=== PATIENT | female | born 1940 | race Caucasian/White ===

== ENCOUNTER 2019-03-05 10:15 | Inpatient (IN) ==
--- NOTE | 2019-02-26 14:49 | EKG Report ---
Test Performed on : 02/26/2019 2:44:26 PM Test Reason : PAT Blood Pressure : / mmHG Vent. Rate : 079 BPM Atrial Rate : 079 BPM P-R Int : 174 ms QRS Dur : 080 ms QT Int : 374 ms P-R-T Axes : 039 064 025 degrees QTc Int : 428 ms Normal sinus rhythm. Normal ECG When compared with ECG of 08-NOV-2018 21:41, Sinus rhythm. has replaced Junctional rhythm. Vent. rate has decreased BY [address] no longer depressed in Anterior leads Nonspecific T wave abnormality now evident in Inferior leads Nonspecific T wave abnormality no longer evident in Lateral leads Confirmed by Nola MCDONNELL, Cliff Ledesma ([id number]) on 02/28/2019 7:59:20 PM
[2019-02-26 15:41] LABS: BASO# 0.03 X1000 (0.0-0.2); BASO% 0.3 % (0.0-0.8); EOS% 1.1 % (0.0-10.0); HEMATOCRIT 48.9 % (37.0-47.0); HEMOGLOBIN 16.5 g/dL (12.0-16.0); IMM GRAN# 0.03 X1000 (0.0-0.04); IMM GRAN% 0.3 % (0.0-0.5); LYMPH# 1.09 X1000 (1.2-3.4); LYMPH% 12.2 % (20.5-51.1); MCH 31.7 PG (27-31); MCHC 33.7 g/dL (33-37); MCV 93.9 FL (81-99); NEUT# 6.85 X1000 (1.4-6.5); NEUT% 77.1 % (42.2-75.2); PLT 248 X1000 (130-400); RBC 5.21 XMIL (4.2-5.4); RDW 13.3 % (11.5-14.5)
[2019-02-26 15:47] LABS: URINE SOURCE CLEAN CATCH
[2019-02-26 15:49] LABS: INR 0.93; PROTIME 12.5 Seconds (11.0-16.0)
[2019-02-26 15:50] LABS: PTT 32.3 Seconds (22.3-41.8)
[2019-02-26 15:55] LABS: HEMOGLOBIN A1C 5.9 % (4.8-6.0)
[2019-02-26 16:00] LABS: AGAP 14; BUN 18 mg/dL (8-22); CALCIUM 9.9 mg/dL (8.8-10.2); CHLORIDE 98 mmol/L (98-107); COSMO 277; CREATININE 0.7 mg/dL (0.5-0.9); ESTIMATED GFR > 60; GLUCOSE 97 mg/dL (70-104); POTASSIUM 3.8 mmol/L (3.5-5.1); SODIUM 138 mmol/L (136-145); TCO2 26 mmol/L (25-35)
[2019-02-26 16:01] LABS: BILIRUBIN URINE NEGATIVE (NEGATIVE); BLOOD URINE TRACE (NEGATIVE); COLOR YELLOW; GLUCOSE URINE NEGATIVE (NEGATIVE); KETONE URINE NEGATIVE (NEGATIVE); LEUKOCYTES URINE LARGE (NEGATIVE); NITRITE URINE NEGATIVE (NEGATIVE); PROTEIN URINE NEGATIVE (NEGATIVE); TURBIDITY URINE HAZY (CLEAR); UROBILINOGEN URINE NORMAL (NORMAL)
[2019-02-26 16:03] LABS: UR EPITHELIAL CELLS <10 /HPF (<10); URINE BACTERIA NEGATIVE /HPF; URINE RBC <10 /HPF (<10); URINE WBC TNTC /HPF (<10)
[2019-03-19] MEDS ORDERED: REGLAN ONE (10:28)
[2019-03-19] MEDS ORDERED: LYRICA ONE (10:28)
[2019-03-19] MEDS ORDERED: PEPCID ONE (10:28)
[2019-03-19] MEDS ORDERED: COLACE ONE (10:28)
[2019-03-19] MEDS ORDERED: KEFZOL 1 GM/D5W 2 GM/100 ML IVPB ONE (10:29)
[2019-03-19] MEDS ORDERED: CELEBREX ONE (10:29)
[2019-03-19] MEDS ORDERED: LR 1,000 ML ONE (10:29)
[2019-03-19] MEDS ORDERED: VALIUM ONE (10:41)
[2019-03-19] MEDS ORDERED: TORADOL ONE (11:14)
[2019-03-19] MEDS ORDERED: SODIUM CHLORIDE 0.9% ONE (11:14)
[2019-03-19] MEDS ORDERED: VANCOMYCIN ONE (11:14)
[2019-03-19] MEDS ORDERED: MARCAINE 0.25% PF ONE (11:14)
[2019-03-19] MEDS ORDERED: DURAMORPH ONE (11:14)
[2019-03-19] MEDS ORDERED: EXPAREL 1.3% ONE (11:16)
[2019-03-19] MEDS ORDERED: DIPRIVAN 1% 500 MG/50 ML BOTTLE ONE (11:23)
[2019-03-19] MEDS ORDERED: FENTANYL ONE (11:30)
[2019-03-19] MEDS ORDERED: VERSED ONE ×3 (11:30→12:58)
[2019-03-19] MEDS: CYKLOKAPRON 1,000 MG/NS 2,000 MG/200 ML IVPB ONE ×2 (11:55→13:00)
[2019-03-19] MEDS ORDERED: ZOFRAN ONE (11:59)
[2019-03-19] MEDS ORDERED: OFIRMEV 1000 MG/ISOTONIC SOLN 1,000 MG/100 ML BOTTLE ONE (11:59)
[2019-03-19] MEDS ORDERED: XYLOCAINE-MPF 2% ONE (11:59)
[2019-03-19] MEDS ORDERED: DECADRON ONE (11:59)
[2019-03-19 12:47] LABS: URINE SOURCE CATH
[2019-03-19 12:53] LABS: BILIRUBIN URINE NEGATIVE (NEGATIVE); BLOOD URINE TRACE (NEGATIVE); COLOR YELLOW; GLUCOSE URINE NEGATIVE (NEGATIVE); KETONE URINE NEGATIVE (NEGATIVE); LEUKOCYTES URINE NEGATIVE (NEGATIVE); NITRITE URINE NEGATIVE (NEGATIVE); PROTEIN URINE TRACE mg/dL (NEGATIVE); SP GRAVITY URINE 1.031; TURBIDITY URINE CLEAR (CLEAR); UR EPITHELIAL CELLS <10 /HPF (<10); URINE BACTERIA NEGATIVE /HPF; URINE RBC <10 /HPF (<10); URINE WBC <10 /HPF (<10); UROBILINOGEN URINE 2 mg/dL (NORMAL)
--- NOTE | 2019-03-19 13:37 | OPERATIVE NOTE ---
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 PROCEDURE PERFORMED: Left total knee replacement. SURGEON: Arben Centeno MD. CLINICAL LABORATORY SERVICE TEACHER: RAÚL Lindsay. Mr. Ordoñez was necessary for proper retraction and manipulation of the case. ANESTHESIA: Spinal. COMPLICATION: None. PROCEDURE IN DETAIL: A 78-year-old female presents for a left total knee replacement. Risks, benefits, and no guarantees were discussed and she is willing to proceed. She was taken to the operating room and satisfactory anesthesia obtained. The left knee was prepped and draped in usual sterile fashion. A time-out was taken to confirm operative site, procedure, and patient. The leg was wrapped with an Esmarch and tourniquet inflated to 300 mmHg. A midline incision was made over the front of the knee followed by quad tendon sparing arthrotomy. The patella was everted with freehand technique and resurfaced. With the patella subluxed laterally, the knee was flexed, an intramedullary hole made in the distal femur and the distal femoral cutting block secured in 5 degrees of valgus. Distal femoral resection was made and the femur sized to a DePuy size 4 femoral implant. The 4 in 1 block was secured and the anterior, posterior, and chamfer cuts sequentially made. The notch was created for posterior stabilized design using the provided notch guide and any remaining osteophytes debrided off the femur. A PCL retractor was placed behind the tibia with the knee flexed to protect the neurovascular bundle and the tibial cutting block secured using extramedullary alignment. Tibial resection made and flexion-extension gaps equal with a 6 mm spacer. Tibia was sized to a size 5 tibial tray. A trial reduction was performed with a size 5 trial tibial tray, a 4 standard width posterior stabilized femoral component and a 6 mm spacer block. Good range of motion and stability was noted. The patella was sized to a 35 medialized dome patella with midline tracking. The trial components were removed and the bony surfaces thoroughly irrigated with pulsatile lavage. Cement with a gram of vancomycin was then utilized to cement a DePuy size 5 rotating platform tibial base plate, a size 4 left posterior stabilized standard width femoral component and a 35 medialized dome patella. Excess cement was removed with a [place] elevator as necessary. While the cement cured, the joint capsule was injected with Exparel for pain management and a Hemovac drain placed. After curing the cement, a size 4, 6 mm posterior stabilized polyethylene bearing was secured into the tibial tray and the knee reduced. Final range of motion was 0 to 120 degrees with midline patellar tracking and excellent soft tissue balance. The arthrotomy was copiously irrigated with irrigant. It was closed over the drain with #1 Vicryl in the arthrotomy, 2-0 Vicryl in the subcutaneous and skin emi on the skin edges. Sterile dressings completed the closure and the patient was recovered from anesthesia and transferred to the recovery room in stable condition. No intraoperative complications were noted. Instrument count and sponge count was correct at the time of closure. cc: William Centeno MD
[2019-03-19] MEDS ORDERED: OXY IR PO PRN ×2 (14:15)
[2019-03-19] MEDS ORDERED: ZOFRAN ODT PO PRN (14:15)
[2019-03-19] MEDS ORDERED: MORPHINE IV PRN ×3 (14:15)
[2019-03-19] MEDS ORDERED: ZOFRAN IV PRN (14:15)
[2019-03-19] MEDS ORDERED: NS 1,000 ML IV SCH (14:15)
[2019-03-19] MEDS ORDERED: OXY IR ONE (14:20)
[2019-03-19] MEDS ORDERED: NS 1,000 ML ONE (14:20)
--- NOTE | 2019-03-19 14:55 | Diag Imaging Result Doc PS360 ---
KNEE 1-2 VIEWS-LEFT - 03/19/2019 INDICATION: post op total knee TECHNIQUE: Two views COMPARISON: None FINDINGS: There has been left total knee arthroplasty. Alignment is anatomic. No hardware fracture or loosening. IMPRESSION: No complication. Electronically signed by Darrion Shields 03/19/2019 2:53 PM
[2019-03-19] MEDS ORDERED: VENTOLIN HFA INH PRN (15:23)
[2019-03-19] MEDS ORDERED: ATIVAN PO PRN (15:23)
[2019-03-19] MEDS ORDERED: ALBUTEROL NEB INH PRN (15:23)
[2019-03-19] MEDS ORDERED: TRIAMCINOLONE ACETONIDE INH SCH (15:30)
--- NOTE | 2019-03-19 16:45 | ORTHOPAEDICS PROGRESS NOTE ---
DATE: 03/19/2019 SUBJECTIVE: Ms. Burger is seen status post total knee replacement. OBJECTIVE: At the present time, she is afebrile with stable vital signs. Her bandage is clean and dry. She is motor and sensory intact. IMAGING STUDIES: Postoperative x-ray showed good alignment of the knee. ASSESSMENT AND PLAN: She is nontender currently. We will plan on keeping her inpatient and mobilizing her. She can be transferred to rehab or home when mobilizing well. cc: MD Medhat Abebe MD
[2019-03-19] MEDS: ULTRAM PO SCH (17:00)
--- NOTE | 2019-03-19 17:32 | CONSULTATION ---
DATE OF CONSULTATION: 03/19/2019 REASON FOR CONSULT: Hypertension management. HISTORY OF PRESENT ILLNESS: Briefly, this is a 78-year-old female with a history of severe DJD, who is here for an elective left total knee replacement per Dr. Centeno. She is 78. She has a history of asthma and hypertension and hypothyroidism. There is no clear documentation of atrial flutter. That has been reported but not confirmed. She was admitted for treatment of her status post left total knee replacement, TKR, and we are evaluating to manage her blood pressure, asthma, potentially. PAST MEDICAL HISTORY: 1. Asthma. 2. Delineated pulmonary fibrosis but this has not been verified 3. Atrial flutter, this has not been verified. 4. Hypertension. 5. Hyperlipidemia. 6. Carotid artery disease. 7. Chronic venous insufficiency status blows ablation. 8. GERD. 9. Hypothyroidism. 10. Hypogammaglobulinemia for which she has gotten previous infusions. Dr. Minaya manages her hyperglobulinemia. PAST SURGICAL HISTORY: I think she has had a left TKA. She has had a greater saphenous vein ablation. FAMILY HISTORY: CHF in her mother. Dementia in her father. She had a brother with leukemia who as a child. SOCIAL HISTORY: No tobacco. Occasional ethanol but no daily use. ALLERGIES: Cipro, lanolin, and beta blockers, which exacerbate her breathing. MEDICATIONS: She takes Accolate 20 twice a day, albuterol as needed, Asmanex, Ambien as needed, Calcitrate, Crestor 5 daily, Dexilant 30 daily, gabapentin 600 t.i.d. but she takes it b.i.d., hydrochlorothiazide 25 b.i.d., Linzess 290, lorazepam 1 b.i.d., MagOx 400, Nasacort, Phospha, QVAR daily, Requip 2 at bedtime, Synthroid 125 daily, Tylenol, [place], Zoloft 150 daily, Xopenex. REVIEW OF SYSTEMS: Otherwise negative times a 10 point review of systems. PHYSICAL EXAMINATION: Vital signs: Blood pressure is 130/66, heart rate 74, respiratory rate 16, temperature 97.8 degrees, 94% on 2 L. General: A well-developed female, in no acute distress. Head: Normocephalic, atraumatic. Eyes: Pupils equal, round, reactive to light. Extraocular movements were intact. Ear, nose, and throat: She had moist mucous membranes. Neck: Supple. Cardiovascular: Regular rate and rhythm. No murmurs, gallops, or rubs. Pulmonary: Bilateral breath sounds. Clear to auscultation. GI: Soft, nontender, nondistended. Bowel sounds are positive. LABORATORY STUDIES: No new data today. Preop she was not anemic. If anything, she had erythrocytosis. PROBLEM LIST: 1. Right total knee replacement. Dr. Centeno is following. We will continue to manage. Avoid beta blockers because of her asthma. 2. Asthma, well controlled. She will be on p.r.n. breathing treatments. 3. Gastroesophageal reflux disease. We will continue her Dexilant and follow. 4. Hypertension. We will continue to monitor closely. Continue regular medications. 5. Hypothyroidism. We will analyze her TSH level and follow. We will follow closely along with you. If stable, then anticipate discharge per Orthopedic recommendations. cc: MD Stevenson Doherty MD
[2019-03-19] MEDS: TYLENOL PO SCH (18:35)
[2019-03-19] MEDS: CELEBREX PO SCH (19:43)
[2019-03-19] MEDS: CRESTOR PO SCH (19:43)
[2019-03-19] MEDS: KEFZOL 2 GM/D5W 2 GM/50 ML IVPB IV SCH (19:43)
[2019-03-19] MEDS: COLACE PO SCH (19:44)
[2019-03-19] MEDS: NEURONTIN PO SCH (19:44)
[2019-03-19] MEDS: HYDROCHLOROTHIAZIDE PO SCH (19:44)
[2019-03-19] MEDS: REQUIP PO SCH (19:45)
[2019-03-19] MEDS: PERIDEX MT SCH (19:45)
[2019-03-20] MEDS: PERIDEX MT SCH ×3 (00:37→20:13)
[2019-03-20] MEDS: HYDROCHLOROTHIAZIDE PO SCH ×3 (00:37→20:14)
[2019-03-20] MEDS: CRESTOR PO SCH ×2 (00:38→20:15)
[2019-03-20] MEDS: CELEBREX PO SCH ×3 (00:38→20:14)
[2019-03-20] MEDS: REQUIP PO SCH ×2 (00:39→20:16)
[2019-03-20] MEDS: COLACE PO SCH ×3 (00:39→20:16)
[2019-03-20] MEDS: NEURONTIN PO SCH ×3 (00:39→20:16)
[2019-03-20] MEDS: ULTRAM PO SCH ×4 (00:44→18:08)
[2019-03-20] MEDS: TYLENOL PO SCH ×2 (00:44→07:02)
[2019-03-20] MEDS: KEFZOL 2 GM/D5W 2 GM/50 ML IVPB IV SCH (04:29)
[2019-03-20 06:26] LABS: BASO# 0.01 X1000 (0.0-0.2); BASO% 0.1 % (0.0-0.8); EOS# 0.02 X1000 (0.0-0.7); EOS% 0.2 % (0.0-10.0); HEMOGLOBIN 13.4 g/dL (12.0-16.0); IMM GRAN# 0.04 X1000 (0.0-0.04); IMM GRAN% 0.3 % (0.0-0.5); LYMPH# 0.84 X1000 (1.2-3.4); LYMPH% 7.2 % (20.5-51.1); MCH 31.1 PG (27-31); MCHC 32.7 g/dL (33-37); MCV 95.1 FL (81-99); MONO# 1.02 X1000 (0.11-0.59); MONO% 8.8 % (1.7-9.3); MPV 10.1 FL (7.4-10.4); NEUT# 9.66 X1000 (1.4-6.5); NEUT% 83.4 % (42.2-75.2); PLT 207 X1000 (130-400); RBC 4.31 XMIL (4.2-5.4); RDW 12.7 % (11.5-14.5); WBC 11.59 X1000 (4.8-10.8)
[2019-03-20 07:00] LABS: AGAP 10; BUN 18 mg/dL (8-22); CALCIUM 8.3 mg/dL (8.8-10.2); CHLORIDE 105 mmol/L (98-107); COSMO 279; CREATININE 0.9 mg/dL (0.5-0.9); ESTIMATED GFR > 60; GLUCOSE 116 mg/dL (70-104); POTASSIUM 3.7 mmol/L (3.5-5.1); SODIUM 138 mmol/L (136-145); TCO2 23 mmol/L (25-35)
[2019-03-20 07:01] LABS: ALB/GLOB RATIO 1.3; ALBUMIN 3.6 g/dL (3.5-5.0); DIRECT BILIRUBIN 0.1 mg/dL (0.00-0.20); TOTAL BILIRUBIN 0.31 mg/dL (0.20-1.00); TOTAL PROTEIN 6.3 g/dL (6.3-8.3)
[2019-03-20] MEDS: LINZESS PO SCH (07:01)
[2019-03-20] MEDS: SYNTHROID PO SCH (07:02)
[2019-03-20] MEDS: BREO ELLIPTA 200/25 MCG INH INH SCH (07:36)
[2019-03-20] MEDS: ZOLOFT PO SCH (08:47)
[2019-03-20] MEDS: ASPIRIN PO SCH (08:48)
[2019-03-20] MEDS: MIRALAX PO SCH (08:48)
[2019-03-20] MEDS: ACCOLATE PO SCH ×2 (08:48→20:17)
[2019-03-20] MEDS: PEPCID PO SCH (08:48)
[2019-03-20] MEDS ORDERED: NON-FORMULARY MED PO SCH (09:00)
--- NOTE | 2019-03-20 14:26 | ORTHOPAEDICS PROGRESS NOTE ---
DATE: 03/20/2019 SUBJECTIVE DATA: Ms. Burger is sitting up in her chair. She is overall doing well. She states her pain is fairly well controlled, but she has had difficulty mobilizing and has felt a little short of breath. OBJECTIVE DATA: Left lower extremity exam: Her surgical dressing is clean, dry, and intact. She still has a drain that is draining bloody drainage. She is in full extension. She has good sensation to the toes. Is able to dorsi and plantar flex the foot. She has a 2+ pedal pulse. ASSESSMENT: Status post left total knee replacement with multiple comorbidities. PLAN: Ms. Burger is still complaining of some pain. She has had a little bit of difficulty mobilizing with physical therapy. She feels like she is not quite ready to go home. We are going to work on her mobilization today and follow her labs for 1 more day. If everything looks good tomorrow, we will plan on her going home with home health in the morning tomorrow. We are going to get her drain and Bassett out today. Dictated by RAÚL Bass for William Centeno MD cc: RAÚL Bass MD Alexis R. Penot, MD
[2019-03-20] MEDS: NORCO-10 PO PRN ×2 (14:48→20:14)
[2019-03-20] MEDS ORDERED: BENADRYL PO PRN (16:51)
--- NOTE | 2019-03-20 19:04 | PROGRESS NOTE ---
DATE: 03/20/2019 SUBJECTIVE: Patient has no major complaints. She seems a little bit jittery, little bit more confused today than she was previously. OBJECTIVE: Blood pressure is 111/64, heart rate 74, respiratory rate 18, temperature 97.9 degrees.Cardiovascular: Regular rate and rhythm. Pulmonary: Bilateral breath sounds. Clear to auscultation. GI: Soft, nontender, nondistended. Bowel sounds are positive. She has some diffuse erythema. Apparently, that has been presents off and on for a while as an outpatient. That is not a new issue. She is not having a drug rash, reportedly. OBJECTIVE DATA: Blood pressure is as described. LABORATORY DATA: White count 11, hemoglobin and hematocrit 13 and 41 platelets 207,000. Basic was normal. PROBLEM LIST: 1. Left total knee replacement. The patient is stable, doing well. Dr. Centeno is following. 2. Hypertension. We will continue her regular medications and follow. 3. Hypothyroidism. Appears to be relatively well controlled. TSH is therapeutic. DISPOSITION: Pending clinical status. Plan to discharge her potentially tomorrow pending her workup. cc: Medhat Cordova MD
[2019-03-20] MEDS ORDERED: COLACE PO SCH (21:00)
[2019-03-21] MEDS: NORCO-10 PO PRN ×2 (01:35→08:19)
[2019-03-21] MEDS: ULTRAM PO SCH ×2 (02:15→06:32)
[2019-03-21] MEDS: LINZESS PO SCH (06:33)
[2019-03-21] MEDS: SYNTHROID PO SCH (06:33)
[2019-03-21 06:44] LABS: HEMATOCRIT 40.2 % (37.0-47.0); HEMOGLOBIN 13.2 g/dL (12.0-16.0)
[2019-03-21] MEDS: BREO ELLIPTA 200/25 MCG INH INH SCH (08:11)
[2019-03-21] MEDS ORDERED: CELEBREX PO SCH (09:00)
[2019-03-21 09:15] VITALS: BP 128/62
[2019-03-21] MEDS: CELEBREX PO SCH (09:29)
[2019-03-21] MEDS: HYDROCHLOROTHIAZIDE PO SCH (09:29)
[2019-03-21] MEDS: ASPIRIN PO SCH (09:29)
[2019-03-21] MEDS: ZOLOFT PO SCH (09:29)
[2019-03-21] MEDS: COLACE PO SCH (09:30)
[2019-03-21] MEDS: PEPCID PO SCH (09:30)
[2019-03-21] MEDS: MIRALAX PO SCH (09:30)
[2019-03-21] MEDS: NEURONTIN PO SCH (09:30)
[2019-03-21] MEDS: PERIDEX MT SCH (09:31)
[2019-03-21] MEDS: ACCOLATE PO SCH (09:32)
--- NOTE | 2019-03-21 14:44 | DISCHARGE SUMMARY ---
ADMISSION DATE: 03/19/2019 DISCHARGE DATE: 03/21/2019 ADMITTING DIAGNOSIS: Degenerative joint disease, left knee. DISCHARGE DIAGNOSIS: Degenerative joint disease, left knee. PRINCIPLE PROCEDURES: Left total knee arthroplasty. PAST MEDICAL HISTORY: Includes GERD, hyperlipidemia, insomnia, anemia, anxiety, asthma, depression, hypothyroidism, and rheumatoid arthritis. DISCHARGE MEDICATIONS: Include [place] 10 for pain, aspirin 325 mg twice daily for DVT prophylaxis, doxycycline for infection prevention and Zofran for nausea as needed. ALLERGIES: The patient is allergic to beta-blockers, ciprofloxacin, and lanolin. HOSPITAL COURSE: The patient was taken to the operating room on 03/19/2019, where left total knee arthroplasty was performed. The patient tolerated the procedure well and was transferred to the recovery room. She was then recovered and transferred to the surgical floor. Mechanical DVT prophylaxis was initiated. Routine postop antibiotics were administered. The Hemovac drain was discontinued on postop day 2 with roughly 75 mL of bloody drainage. Physical therapy was initiated. Patient ambulated without much difficulty. She has been getting up to the bedside commode and spontaneously voiding. She transitioned to oral pain medications. Incision remained clean, dry, and intact during hospital course. There is no pain with calf squeeze. There is good pedal pulses. There is good sensation. She was felt ready to be discharged home today on 03/21/2019. DISPOSITION: She is discharged home. FOLLOWUP: She is to follow up with Dr. Centeno in about 10 days for a recheck on her wound and refills on prescriptions. DISCHARGE INSTRUCTIONS: She is to be going home today with physical therapy after she walks with PT in the hospital. Dictated by RAÚL Lindsay for William Centeno MD cc: RAÚL Lindsay MD Alexis R. Penot, MD
== END 2019-03-21 11:33 | disposition home health service (06) | DRG 470 ==
LOC: SURHOLD 03-19 02:40 → 4N 03-19 12:12
PROVIDERS: ADMIT Internal Medicine; ATTEND Orthopaedic Surgery Adult Reconstructive Orthopaedic Surgery